=== PATIENT | female | born 1955 | race Asian ===

== ENCOUNTER 2021-03-25 06:01 | Day surgery (SDC) | payer OTHER ==
[2021-03-19 16:25] VITALS: BMI 33.4
[2021-03-25] MEDS ORDERED: CELECOXIB 200 MG CAPSULE ONE (06:51)
[2021-03-25] MEDS ORDERED: TRANEXAMIC ACID 1000 MG/10 ML VIAL IVPUSH ONE (06:59)
[2021-03-25] MEDS ORDERED: CELECOXIB 200 MG CAPSULE PO ONE (06:59)
[2021-03-25] MEDS ORDERED: CEFAZOLIN 2 GM in DEXTROSE 5%-WATER - 50 ML IVPB ONE (06:59)
[2021-03-25] MEDS ORDERED: BUPIVACAINE LIPOSOME/PF (EXPAREL) 266 MG/20 ML VIAL ONE ×2 (07:14→07:15)
[2021-03-25] MEDS ORDERED: MIDAZOLAM HCL 2 MG/2 ML SINGLE DOSE VIAL ONE (07:14)
[2021-03-25] MEDS ORDERED: SODIUM CHLORIDE 0.9% P/F 10 ML VIAL IJ ONE (07:14)
[2021-03-25] MEDS ORDERED: BUPIVACAINE HCL/PF 0.5% (5MG/ML) 10 ML VIAL ONE ×2 (07:14→07:33)
[2021-03-25] MEDS ORDERED: ceFAZolin SODIUM 1 GM VIAL ONE ×2 (07:16→07:30)
[2021-03-25] MEDS ORDERED: THROMBIN (BOVINE) 5,000 UNIT VIAL TP ONE ×2 (07:17→09:15)
[2021-03-25] MEDS ORDERED: DEXAMETHASONE SOD PHOSPHATE 4 MG/1 ML VIAL ONE (07:30)
[2021-03-25] MEDS ORDERED: ONDANSETRON 4 MG/2 ML VIAL ONE (07:30)
[2021-03-25] MEDS ORDERED: ONDANSETRON 4 MG/2 ML VIAL IVPUSH PRN (07:59)
[2021-03-25] MEDS ORDERED: MAG HYDROX/AL HYDROX/SIMETH 30 ML UNIT-DOSE CUP PO PRN (07:59)
[2021-03-25] MEDS ORDERED: LACTATED RINGERS SOLUTION 1,000 ML IV SCH (08:00)
[2021-03-25] MEDS ORDERED: BUPIVICAINE 0.25%/MORPH PF/KETOROLAC - 51ML DISP.SYRINGE IA ONE (08:00)
[2021-03-25] MEDS ORDERED: PATIENT'S OWN MEDICATION (NON-FORMULARY) (Glipizide/Metformin Hcl [Glipizide-Metformin 5-5 PO SCH (10:00)
[2021-03-25] MEDS ORDERED: PANTOPRAZOLE 40 MG TABLET PO SCH (10:00)
[2021-03-25] MEDS ORDERED: PATIENT'S OWN MEDICATION (NON-FORMULARY) (Empagliflozin [Jardiance] 10 MG Tablet) PO SCH (10:00)
[2021-03-25] MEDS ORDERED: PATIENT'S OWN MEDICATION (NON-FORMULARY) (Olmesartan Medoxomil 40 MG Tablet) PO SCH (10:00)
[2021-03-25] MEDS ORDERED: MULTIVITAMINS (DAILY MVI) TABLET (FP) PO SCH (10:00)
[2021-03-25] MEDS ORDERED: oxyCODONE HCL 5 MG TABLET PO PRN ×2 (10:13)
[2021-03-25] MEDS ORDERED: ACETAMINOPHEN 1000 MG/100 ML VIAL (NON FORMULARY) IVPB ONE (10:30)
[2021-03-25] MEDS ORDERED: ACETAMINOPHEN INJECTION 100 ML IVPB ONE (10:47)
[2021-03-25] MEDS: CEFAZOLIN 2 GM/D5W 2 GM/50 ML ML IVPB SCH (16:20)
[2021-03-25] MEDS: glipiZIDE 5 MG TABLET (FP) PO SCH (16:21)
[2021-03-25] MEDS: metFORMIN HCL 500 MG TABLET (FP) PO SCH (16:22)
[2021-03-25] MEDS: INSULIN SLIDING SCALE (NOVOLOG) 1 VIAL SQ SCH ×2 (17:57→21:39)
[2021-03-25] MEDS: ACETAMINOPHEN 325 MG TABLET (FP) PO SCH (19:09)
[2021-03-25] MEDS: SENNOSIDES/DOCUSATE COMBO (SENNA PLUS) TABLET (UD) PO SCH (21:33)
[2021-03-25] MEDS: oxyCODONE HCL 10 MG SUSTAINED ACTING TABLET PO SCH (21:33)
[2021-03-25] MEDS ORDERED: ROSUVASTATIN CA 20 MG TABLET (FP) PO SCH (22:00)
[2021-03-26] MEDS: ACETAMINOPHEN 325 MG TABLET (FP) PO SCH ×2 (00:01→06:33)
[2021-03-26] MEDS: CEFAZOLIN 2 GM/D5W 2 GM/50 ML ML IVPB SCH (00:01)
[2021-03-26] MEDS: metFORMIN HCL 500 MG TABLET (FP) PO SCH (06:34)
[2021-03-26] MEDS: glipiZIDE 5 MG TABLET (FP) PO SCH (06:34)
[2021-03-26] MEDS: INSULIN SLIDING SCALE (NOVOLOG) 1 VIAL SQ SCH (06:36)
[2021-03-26] MEDS ORDERED: ASPIRIN 325 MG TABLET PO SCH (08:00)
[2021-03-26] MEDS: oxyCODONE HCL 10 MG SUSTAINED ACTING TABLET PO SCH (09:00)
[2021-03-26] MEDS: SENNOSIDES/DOCUSATE COMBO (SENNA PLUS) TABLET (UD) PO SCH (09:02)
[2021-03-26] MEDS ORDERED: VERAPAMIL HCL 240 MG E.R. TABLET PO SCH (10:00)
[2021-03-26] MEDS ORDERED: LOSARTAN POTASSIUM 50 MG TABLET PO SCH (10:00)
[2021-03-26 10:09] VITALS: BP 130/74; PULSE 66; TEMP 98
== END 2021-03-26 11:15 | disposition home health service (06) ==
LOC: FASU 06:01 → FM/S 12:16 → FASU 03-26 11:15
PROVIDERS: ATTEND Orthopaedic Surgery
PROC: 8E0YXBZ Computer Assisted Procedure of Lower Extremity (ICD-10-PCS; 2021-03-25)
PROC: 8E0Y0CZ Robotic Assisted Procedure of Lower Extremity, Open Approach (ICD-10-PCS; 2021-03-25)
PROC: 0SRC0L9 Replacement of Right Knee Joint with Medial Unicondylar Synthetic Substitute, Cemented, Open Approach (ICD-10-PCS; principal; 2021-03-25 08:00)
DX: M17.11 Unilateral primary osteoarthritis, right knee (principal)
CPT/HCPCS: 20985; 27446; C1776; S2900; 73560-TC-RT-FY; 82962; 94760; 97010-GP; 97116-GP; 97163-GP; J0131

== ENCOUNTER 2023-07-27 05:57 | Day surgery (SDC) | payer OTHER ==
[2023-07-22 17:18] VITALS: BMI 34.3
[2023-07-27] MEDS ORDERED: CEFAZOLIN SODIUM 2 GM in DEXTROSE 5%-WATER 100 ML IVPB ONE (06:29)
[2023-07-27] MEDS ORDERED: TRANEXAMIC ACID 1000 MG/10 ML VIAL IVPUSH ONE (06:29)
[2023-07-27] MEDS ORDERED: MIDAZOLAM HCL 2 MG/2 ML SINGLE DOSE VIAL ONE ×2 (07:11→08:45)
[2023-07-27] MEDS ORDERED: BUPIVACAINE HCL/PF 0.5% (5 MG/ML) 30 ML VIAL IJ ONE (07:11)
[2023-07-27] MEDS ORDERED: BUPIVACAINE LIPOSOME/PF (EXPAREL) 266 MG/20 ML VIAL ONE (07:11)
[2023-07-27] MEDS ORDERED: VANCOMYCIN 1,000 MG VIAL (RESTRICTED TO ID ONLY) ONE (07:19)
[2023-07-27] MEDS ORDERED: THROMBIN (BOVINE) 5,000 UNIT VIAL TP ONE (07:19)
[2023-07-27] MEDS ORDERED: ceFAZolin SODIUM 1 GM VIAL ONE ×2 (07:19→08:45)
[2023-07-27] MEDS ORDERED: BUPIVACAINE HCL/PF 0.5% (5MG/ML) 10 ML VIAL ONE (07:53)
[2023-07-27] MEDS ORDERED: LACTATED RINGERS SOLUTION 1,000 ML IV SCH ×2 (08:00→10:15)
[2023-07-27] MEDS ORDERED: DEXAMETHASONE SOD PHOSPHATE 4 MG/1 ML VIAL ONE (08:45)
[2023-07-27] MEDS ORDERED: KETOROLAC TROMETHAMINE 30 MG/1 ML VIAL ONE (08:45)
[2023-07-27] MEDS ORDERED: PHENYLEPHRINE HCL 10 MG/1 ML SINGLE DOSE VIAL ONE (08:45)
[2023-07-27] MEDS ORDERED: SODIUM CHLORIDE 0.9% P/F 10 ML VIAL IJ ONE (08:45)
[2023-07-27] MEDS ORDERED: VANCOMYCIN 1,000 MG VIAL (RESTRICTED TO ID ONLY) IVPB ONE (09:31)
[2023-07-27] MEDS ORDERED: ONDANSETRON 4 MG/2 ML VIAL IVPUSH PRN (10:12)
[2023-07-27] MEDS ORDERED: ACETAMINOPHEN 1000 MG/100 ML BAG IVPB ONE (10:12)
[2023-07-27] MEDS ORDERED: oxyCODONE HCL 5 MG TABLET PO PRN (10:12)
[2023-07-27 12:50] VITALS: RESP 18
[2023-07-27] MEDS: oxyCODONE HCL 5 MG TABLET PO PRN (16:17)
[2023-07-27] MEDS: MULTIVITAMINS (DAILY MVI) TABLET (FP) PO SCH (17:32)
[2023-07-27] MEDS: EMPAGLIFLOZIN (JARDIANCE) 25 MG TABLET PO SCH (17:33)
[2023-07-27] MEDS: VERAPAMIL HCL 240 MG E.R. TABLET PO SCH (17:33)
[2023-07-27] MEDS: LOSARTAN POTASSIUM 50 MG TABLET PO SCH (17:33)
[2023-07-27] MEDS: PANTOPRAZOLE 40 MG TABLET PO SCH (17:35)
[2023-07-27] MEDS: SENNOSIDES/DOCUSATE COMBO (SENNA PLUS) TABLET (UD) PO SCH ×2 (17:35→21:27)
[2023-07-27] MEDS ORDERED: DEXTROSE 5%-WATER 100 ML IVPB ONE (17:45)
[2023-07-27] MEDS: ACETAMINOPHEN 500 MG TABLET (FP) PO SCH ×3 (17:53→22:00)
[2023-07-27] MEDS: glipiZIDE 10 MG TABLET (FP) PO SCH (17:53)
[2023-07-27] MEDS: KETOROLAC TROMETHAMINE 30 MG/1 ML VIAL IVPUSH SCH ×2 (17:54→18:34)
[2023-07-27] MEDS: metFORMIN HCL 500 MG TABLET (FP) PO SCH (17:54)
[2023-07-27] MEDS: CEFAZOLIN SODIUM 2 GM in DEXTROSE 5%-WATER 100 ML IVPB SCH ×2 (17:54→23:21)
[2023-07-27] MEDS: ONDANSETRON 4 MG/2 ML VIAL IVPUSH PRN (18:53)
[2023-07-27] MEDS: oxyCODONE HCL 10 MG SUSTAINED ACTING TABLET PO SCH (21:28)
[2023-07-27] MEDS ORDERED: ROSUVASTATIN CA 20 MG TABLET PO SCH (22:00)
[2023-07-28] MEDS: ACETAMINOPHEN 500 MG TABLET (FP) PO SCH ×2 (06:59→09:14)
[2023-07-28] MEDS: metFORMIN HCL 500 MG TABLET (FP) PO SCH (07:00)
[2023-07-28] MEDS: glipiZIDE 10 MG TABLET (FP) PO SCH (07:00)
[2023-07-28] MEDS ORDERED: ASPIRIN 325 MG TABLET PO SCH (08:00)
[2023-07-28 08:32] LABS: HEMOGLOBIN 11.2 G/dL (10.7-15.3); MCH 28.4 pg (25.7-33.7); MCHC 31.1 g/dl (32.0-36.0); MEAN CELL VOLUME 91.4 fl (80-96); PLATELET COUNT 208.9 10^3/uL (134-434); RBC 3.94 10^6/uL (3.60-5.2); RDW 15.1 % (11.6-15.6); WHITE BLOOD COUNT 7.8 10^3/uL (4.0-10.8)
[2023-07-28] MEDS: LOSARTAN POTASSIUM 50 MG TABLET PO SCH (09:12)
[2023-07-28] MEDS: VERAPAMIL HCL 240 MG E.R. TABLET PO SCH (09:12)
[2023-07-28] MEDS: oxyCODONE HCL 10 MG SUSTAINED ACTING TABLET PO SCH (09:13)
[2023-07-28] MEDS: EMPAGLIFLOZIN (JARDIANCE) 25 MG TABLET PO SCH (09:13)
[2023-07-28] MEDS: SENNOSIDES/DOCUSATE COMBO (SENNA PLUS) TABLET (UD) PO SCH (09:13)
[2023-07-28] MEDS: PANTOPRAZOLE 40 MG TABLET PO SCH (09:13)
[2023-07-28] MEDS: oxyCODONE HCL 5 MG TABLET PO PRN (09:14)
[2023-07-28] MEDS: MULTIVITAMINS (DAILY MVI) TABLET (FP) PO SCH (09:14)
[2023-07-28] MEDS: ONDANSETRON 4 MG/2 ML VIAL IVPUSH PRN (14:31)
[2023-07-28 14:36] VITALS: BP 118/56; PULSE 66; TEMP 98
== END 2023-07-28 15:36 | disposition home health service (06) ==
LOC: FASUSAT 05:57 → FM/S 12:00 → FASUSAT 07-28 15:36
PROVIDERS: ATTEND Orthopaedic Surgery
PROC: 8E0Y0CZ Robotic Assisted Procedure of Lower Extremity, Open Approach (ICD-10-PCS; 2023-07-27)
PROC: 0SRD0J9 Replacement of Left Knee Joint with Synthetic Substitute, Cemented, Open Approach (ICD-10-PCS; principal; 2023-07-27 08:23)
DX: M17.12 Unilateral primary osteoarthritis, left knee (principal)
CPT/HCPCS: 20985; 27447; C1776; S2900; 36415; 73560-TC-LT-FY; 82962; 85027; 94760; 97010-GP; 97116-GP; 97162-GP; C1889